=== PATIENT | male | born 1985 | race Caucasian/White ===

== ENCOUNTER 2020-08-18 16:04 | Inpatient (IN) | payer MEDICAID ==
[~2020-08-18] VITALS: Ht 180.3 cm; Wt 75.0 kg
[2020-08-18] MEDS ORDERED: CefTRIAXone 2gm/D5W 50ml BAG 50 ML IV ONE (16:25)
[2020-08-18] MEDS ORDERED: vancomycin/NS 1 GM ADD-VANTAGE 250 ML IV ONE (16:25)
[2020-08-18] MEDS ORDERED: TETanus/Pertussis (Acell)/Diphther VAC/PF (Tdap-Adult) 0.5ml syringe IMVAC ONE (16:40)
[2020-08-18 17:19] VITALS: BP 119/76
[2020-08-18 17:28] LABS: BASOPHILS % (AUTO) 0.4 % (0-1); EOSINOPHILS # (AUTO) 0.3 X10'3 (0-0.9); EOSINOPHILS % (AUTO) 2.8 % (0-6); HEMATOCRIT 38.9 % (42.0-52.0); LYMPHOCYTES % (AUTO) 8.2 % (21-51); MEAN CORPUSCULAR HEMOGLOBIN 30.8 PG (27.0-31.0); MEAN CORPUSCULAR HGB CONC 33.5 g/dL (33.0-36.5); MEAN CORPUSCULAR VOLUME 92.1 FL (78-98); MEAN PLATELET VOLUME 7.4 FL (7.4-10.4); MONOCYTES % (AUTO) 8.4 % (2-12); NEUTROPHILS # (AUTO) 9.5 X10'3 (1.8-7.7); NEUTROPHILS % (AUTO) 80.2 % (42-75); PLATELET COUNT 236 X10'3 (140-440); RED BLOOD COUNT 4.23 X10'6 (4.70-6.10); RED CELL DISTRIBUTION WIDTH 13.3 % (11.5-14.5); WHITE BLOOD COUNT 11.9 X10'3 (4.5-11.0)
[2020-08-18 17:42] LABS: ALANINE AMINOTRANSFERASE 41 U/L (12-78); ALBUMIN 3.6 G/DL (3.4-5.0); ALBUMIN/GLOBULIN RATIO 1.1 (1.1-1.5); ALKALINE PHOSPHATASE 76 IU/L (46-116); ANION GAP 6 (8-16); ASPARTATE AMINO TRANSFERASE 20 U/L (10-37); BILIRUBIN,TOTAL 0.3 MG/DL (0.1-1.0); BLOOD UREA NITROGEN 22 MG/DL (7-18); BUN/CREATININE RATIO 23.9 (5.4-32.0); CALCIUM 8.7 MG/DL (8.5-10.1); CHLORIDE 108 MMOL/L (99-107); CREATININE 0.92 MG/DL (0.60-1.10); GLUCOSE 99 MG/DL (70-104); POTASSIUM 3.8 MMOL/L (3.5-5.1); SODIUM 143 MMOL/L (135-145); TOTAL CARBON DIOXIDE 28.7 MMOL/L (24-32); eGFR > 90 ML/MIN
[2020-08-18] MEDS ORDERED: ondansetron/PF 4mg/2ml inj IV ONE (17:45)
[2020-08-18] MEDS ORDERED: morphine 4 MG/ML inj SYRINge IV ONE (17:45)
[2020-08-18] MEDS ORDERED: morphine 2 MG/ML inj. syringe IV PRN ×2 (17:55)
[2020-08-18] MEDS ORDERED: acetaminophen 325mg tablet PO PRN (17:55)
[2020-08-18] MEDS ORDERED: mag hydrox/Alum hydrox/simeth 30ml oral suspension PO PRN (17:55)
[2020-08-18] MEDS ORDERED: magnesium hydroxide 30ml (MOM) UD suspension PO PRN (17:55)
[2020-08-18] MEDS ORDERED: ondansetron/PF 4mg/2ml inj IV PRN (17:55)
[2020-08-18] MEDS ORDERED: normal saline 1000ml 1,000 ML IV SCH (17:55)
[2020-08-18] MEDS ORDERED: HYDROcodone/acetaminophen 5mg/325mg tablet PO PRN (17:55)
[2020-08-18] MEDS ORDERED: NO HOME MEDS (17:57)
--- NOTE | 2020-08-18 19:07 | NUR ---
I have received report from Giovana ED RN and had the opportunity to ask questions and assume patient care.
--- NOTE | 2020-08-18 19:45 | NUR ---
Pt arrives on unit in wheelchair at 1915, assisted by ED RN. Pt ambulated to room with IV tubing attached to 20g left AC PIV. Pt immediately requested me to take off IV tubing, stating, Can you get take this is off? I disconnected patient from IV tubing, telling him that I will need to reconnect him back to the tubing once he is done with the restroom. Pt comes out of the restroom and sit on the edge of bed and floor aide takes his vital signs. After performing vital sign and while I was performing my physical assessing, pt became very adamant, stating, "Can you take this out of me? I informed the patient that he will need the PIV in place as the doctor has ordered fluid to be administered. Pt became very agitated and states, Okay, give me a moment and rushed out of the room, almost running into another nurse. Pt exited through the exit entrance between room 351 and 352 at 1925. Addendum: 08/18/20 at 2311 by Rafaela Abel RN VS 97.4 F, 101 HR 19 RR, 100% RA, 160/82 BP, 3/10 Pain.
--- NOTE | 2020-08-18 19:46 | NUR ---
, Dr. Tovar, and nursing forest fire specialist supervisor was all informed.
[2020-08-18] MEDS ORDERED: heparin, porcine 5000 units/ml vial SQ SCH (20:00)
--- NOTE | 2020-08-18 20:00 | NUR ---
Per security, pt has left the building through docking ramp.
--- NOTE | 2020-08-18 20:30 | NUR ---
[facility] informed.
[2020-08-19] MEDS ORDERED: VANCOmycin 1250MG/NS 250ml Bag 250 ML IV SCH (05:30)
[2020-08-19] MEDS ORDERED: CefTRIAXone 2gm/D5W 50ml BAG 50 ML IV SCH (08:00)
== END 2020-08-18 19:25 | disposition left against medical advice (07) | DRG 383 ==
LOC: ER 16:05 → ED HOLD 17:55 → SUR 3N 19:15
PROVIDERS: ADMIT Family Medicine; ATTEND Family Medicine
DX: L03.113 Cellulitis of right upper limb (principal); F17.210 Nicotine dependence, cigarettes, uncomplicated; Z89.019 Acquired absence of unspecified thumb; Z53.29 Procedure and treatment not carried out because of patient's decision for other reasons
CPT/HCPCS: 36415; 73130; 80053; 83605; 84145; 85025; 85651; 87040; 87070; 90471; 90715; 96365; 96368; 96375; 99285; G0378; J0696; J2270; J2405; J3370; J7030

== ENCOUNTER 2020-08-19 11:31 | Inpatient (IN) | payer MEDICAID ==
[~2020-08-19] VITALS: Ht 180.3 cm; Wt 63.0 kg
[~2020-08-19 11:31] MED LIST: NO HOME MEDS
[2020-08-19] MEDS ORDERED: CefTRIAXone 2gm/D5W 50ml BAG 50 ML IV ONE (12:50)
[2020-08-19] MEDS ORDERED: vancomycin/NS 1 GM ADD-VANTAGE 250 ML IV ONE (12:50)
[2020-08-19] MEDS ORDERED: normal saline 1000ML IV soln IV ONE (12:50)
[2020-08-19 13:04] LABS: BASOPHILS # (AUTO) 0.1 X10'3 (0-0.2); BASOPHILS % (AUTO) 0.5 % (0-1); EOSINOPHILS # (AUTO) 0.4 X10'3 (0-0.9); HEMATOCRIT 39.1 % (42.0-52.0); HEMOGLOBIN 13.1 g/dl (14.0-17.9); LYMPHOCYTES # (AUTO) 1.1 X10'3 (1.1-4.8); LYMPHOCYTES % (AUTO) 8.8 % (21-51); MEAN CORPUSCULAR HEMOGLOBIN 30.8 PG (27.0-31.0); MEAN CORPUSCULAR HGB CONC 33.4 g/dL (33.0-36.5); MEAN CORPUSCULAR VOLUME 92.2 FL (78-98); MEAN PLATELET VOLUME 7.1 FL (7.4-10.4); MONOCYTES # (AUTO) 1.1 X10'3 (0-0.9); MONOCYTES % (AUTO) 8.6 % (2-12); NEUTROPHILS # (AUTO) 9.6 X10'3 (1.8-7.7); NEUTROPHILS % (AUTO) 79.1 % (42-75); PLATELET COUNT 232 X10'3 (140-440); RED BLOOD COUNT 4.24 X10'6 (4.70-6.10); RED CELL DISTRIBUTION WIDTH 13.2 % (11.5-14.5); WHITE BLOOD COUNT 12.2 X10'3 (4.5-11.0)
[2020-08-19] MEDS ORDERED: ondansetron 4mg rapidly disintigrating tab PO ONE (13:15)
[2020-08-19] MEDS ORDERED: HYDROcodone/acetaminophen 5mg/325mg tablet PO ONE ×2 (13:15→13:55)
[2020-08-19 13:26] LABS: ALANINE AMINOTRANSFERASE 38 U/L (12-78); ALBUMIN 3.3 G/DL (3.4-5.0); ALBUMIN/GLOBULIN RATIO 0.9 (1.1-1.5); ALKALINE PHOSPHATASE 76 IU/L (46-116); ANION GAP 6 (8-16); ASPARTATE AMINO TRANSFERASE 19 U/L (10-37); BILIRUBIN,TOTAL 0.3 MG/DL (0.1-1.0); BLOOD UREA NITROGEN 22 MG/DL (7-18); CALCIUM 9.9 MG/DL (8.5-10.1); CHLORIDE 108 MMOL/L (99-107); CREATININE 0.88 MG/DL (0.60-1.10); GLUCOSE 99 MG/DL (70-104); POTASSIUM 4.2 MMOL/L (3.5-5.1); SODIUM 144 MMOL/L (135-145); TOTAL CARBON DIOXIDE 29.7 MMOL/L (24-32); TOTAL PROTEIN 6.9 G/DL (6.4-8.2); eGFR > 90 ML/MIN
[2020-08-19] MEDS ORDERED: ibuprofen tablet 400 MG TABLET PO ONE (13:55)
[2020-08-19] MEDS ORDERED: morphine 4 MG/ML inj SYRINge IV ONE (14:10)
[2020-08-19] MEDS ORDERED: ondansetron/PF 4mg/2ml inj IV ONE (14:10)
[2020-08-19] MEDS ORDERED: HYDROcodone/acetaminophen 5mg/325mg tablet PO PRN (15:20)
[2020-08-19] MEDS ORDERED: ondansetron/PF 4mg/2ml inj IV PRN (15:20)
[2020-08-19] MEDS ORDERED: acetaminophen 325mg tablet PO PRN ×2 (15:20)
[2020-08-19] MEDS ORDERED: magnesium hydroxide 30ml (MOM) UD suspension PO PRN (15:20)
[2020-08-19] MEDS ORDERED: mag hydrox/Alum hydrox/simeth 30ml oral suspension PO PRN (15:20)
[2020-08-19] MEDS ORDERED: morphine 2 MG/ML inj. syringe IV PRN (15:20)
--- NOTE | 2020-08-19 16:22 | NUR ---
CALLED ER NURSE BUSY, SHE WILL CALL BACK.
[2020-08-19 16:52] VITALS: BP 144/88
[2020-08-19 18:00] VITALS: BP 109/66
--- NOTE | 2020-08-19 18:00 | NUR ---
Patient in room PIA 354. I have received report from CHRISTA ZAMUDIO and had the opportunity to ask questions and assume patient care.
[2020-08-19] MEDS: morphine 2 MG/ML inj. syringe IV PRN (21:32)
[2020-08-20] VITALS: BP 116/72
[2020-08-20] MEDS: vancomycin/NS 1 GM ADD-VANTAGE 250 ML IV SCH ×2 (02:41→14:34)
[2020-08-20] MEDS: HYDROcodone/acetaminophen 10/325mg tab PO PRN ×3 (02:42→20:50)
[2020-08-20] MEDS: morphine 2 MG/ML inj. syringe IV PRN ×5 (03:40→22:55)
--- NOTE | 2020-08-20 06:31 | NUR ---
Patient in room PIA 354. I have received report from LIZZ Dennison and had the opportunity to ask questions and assume patient care.
[2020-08-20 08:00] VITALS: BP 95/53
[2020-08-20 08:18] LABS: BASOPHILS % (AUTO) 0.3 % (0-1); EOSINOPHILS # (AUTO) 0.4 X10'3 (0-0.9); EOSINOPHILS % (AUTO) 3.1 % (0-6); HEMATOCRIT 36.6 % (42.0-52.0); HEMOGLOBIN 12.3 g/dl (14.0-17.9); LYMPHOCYTES # (AUTO) 1.1 X10'3 (1.1-4.8); LYMPHOCYTES % (AUTO) 9.3 % (21-51); MEAN CORPUSCULAR HEMOGLOBIN 31.2 PG (27.0-31.0); MEAN CORPUSCULAR HGB CONC 33.6 g/dL (33.0-36.5); MEAN CORPUSCULAR VOLUME 92.8 FL (78-98); MEAN PLATELET VOLUME 7.3 FL (7.4-10.4); MONOCYTES % (AUTO) 8.3 % (2-12); NEUTROPHILS # (AUTO) 9.5 X10'3 (1.8-7.7); PLATELET COUNT 223 X10'3 (140-440); RED BLOOD COUNT 3.94 X10'6 (4.70-6.10)
[2020-08-20 08:26] LABS: ALBUMIN 2.8 G/DL (3.4-5.0); ANION GAP 2 (8-16); BLOOD UREA NITROGEN 17 MG/DL (7-18); BUN/CREATININE RATIO 20.7 (5.4-32.0); CHLORIDE 106 MMOL/L (99-107); CREATININE 0.82 MG/DL (0.60-1.10); GLUCOSE 100 MG/DL (70-104); SODIUM 140 MMOL/L (135-145); TOTAL CARBON DIOXIDE 31.7 MMOL/L (24-32); eGFR > 90 ML/MIN
[2020-08-20 11:23] LABS: CLARITY,URINE CLEAR (Clear); COLOR,URINE YELLOW (Yellow); GLUCOSE, URINE NEGATIVE (Neg); KETONES,URINE NEGATIVE (Neg); LEUKOCYTE ESTERASE ,URINE TRACE (Neg); NITRITES, URINE NEGATIVE (Neg); OCCULT BLOOD,URINE NEGATIVE (Neg); PROTEIN,URINE NEGATIVE (Neg); UROBILINOGEN,URINE 0.2 E.U/dL (0.2-1.0)
[2020-08-20 11:25] LABS: UA COLLECTION TYPE CLN CATCH MIDSTREAM
[2020-08-20 11:39] LABS: MUCUS STRANDS FEW /LPF (Neg)
[2020-08-20 11:41] LABS: HYALINE CASTS 0-3 /LPF (NEGATIVE)
[2020-08-20 11:43] LABS: BACTERIA,URINE NONE SEEN /HPF (Neg); RBC,URINE 0-2 /HPF (0-2); SQUAMOUS EPITHELIAL CELL,UR NONE SEEN /LPF (FEW); WBC,URINE 0-4 /HPF (0-4)
[2020-08-20 12:25] VITALS: BP 128/75
[2020-08-20 18:00] VITALS: BP 137/72
--- NOTE | 2020-08-20 18:08 | NUR ---
Problems reprioritized. Patient report given, questions answered & plan of care reviewed with LIZZ Dennison.
[2020-08-20] MEDS: lactobacillus rhamnosus 10,000 MMU CELLS/CAPSULE PO SCH (19:05)
[2020-08-21] VITALS: BP 125/79
[2020-08-21] MEDS ORDERED: VANCOMYCIN LEVEL IV ONE (02:00)
[2020-08-21] MEDS: morphine 2 MG/ML inj. syringe IV PRN ×2 (03:16→11:23)
[2020-08-21] MEDS: vancomycin/NS 1 GM ADD-VANTAGE 250 ML IV SCH ×3 (03:16→20:41)
[2020-08-21 03:24] LABS: BASOPHILS % (AUTO) 0.4 % (0-1); EOSINOPHILS # (AUTO) 0.3 X10'3 (0-0.9); EOSINOPHILS % (AUTO) 2.8 % (0-6); HEMATOCRIT 38.4 % (42.0-52.0); HEMOGLOBIN 12.7 g/dl (14.0-17.9); LYMPHOCYTES # (AUTO) 1.1 X10'3 (1.1-4.8); LYMPHOCYTES % (AUTO) 9.8 % (21-51); MEAN CORPUSCULAR HEMOGLOBIN 30.1 PG (27.0-31.0); MEAN CORPUSCULAR VOLUME 91.2 FL (78-98); MEAN PLATELET VOLUME 7.3 FL (7.4-10.4); MONOCYTES % (AUTO) 8.5 % (2-12); NEUTROPHILS % (AUTO) 78.5 % (42-75); PLATELET COUNT 240 X10'3 (140-440); RED BLOOD COUNT 4.21 X10'6 (4.70-6.10); WHITE BLOOD COUNT 11.4 X10'3 (4.5-11.0)
[2020-08-21 03:25] LABS: ALBUMIN 2.8 G/DL (3.4-5.0); ANION GAP 6 (8-16); BLOOD UREA NITROGEN 12 MG/DL (7-18); BUN/CREATININE RATIO 15.6 (5.4-32.0); CALCIUM 8.7 MG/DL (8.5-10.1); CHLORIDE 100 MMOL/L (99-107); CREATININE 0.77 MG/DL (0.60-1.10); GLUCOSE 91 MG/DL (70-104); POTASSIUM 3.9 MMOL/L (3.5-5.1); SODIUM 137 MMOL/L (135-145); TOTAL CARBON DIOXIDE 30.9 MMOL/L (24-32); VANCOMYCIN,TROUGH 4.3 UG/ML (6.0-14.0); eGFR > 90 ML/MIN
[2020-08-21] MEDS: HYDROcodone/acetaminophen 10/325mg tab PO PRN ×3 (04:58→20:42)
[2020-08-21 07:32] VITALS: BP 102/54
[2020-08-21 11:00] VITALS: BP 120/63
[2020-08-21] MEDS: lactobacillus rhamnosus 10,000 MMU CELLS/CAPSULE PO SCH ×2 (11:23→20:41)
--- NOTE | 2020-08-21 18:31 | NUR ---
Patient in room PIA 354. I have received report from BLANCO ZAMUDIO and had the opportunity to ask questions and assume patient care. Addendum: 08/21/20 at 1831 by Bridget Thomas RN Amended: Links added.
--- NOTE | 2020-08-21 18:38 | NUR ---
Problems reprioritized. Patient report given, questions answered & plan of care reviewed with RICA ZAMUDIO.
[2020-08-21 19:00] VITALS: BP_SYST 101; BP_SYST 111; BP_DIAS 65
--- NOTE | 2020-08-21 20:55 | NUR ---
medicated with po norco hand pain 5/10. sandwich and juice given per request. iv abx infusing.
--- NOTE | 2020-08-21 22:10 | NUR ---
resting without changes at this time.
[2020-08-21 23:45] VITALS: BP 111/63
--- NOTE | 2020-08-22 | NUR ---
awoke vitals done and snack of milk and mike crackers given at this time.
[2020-08-22] MEDS: HYDROcodone/acetaminophen 10/325mg tab PO PRN ×2 (01:58→06:30)
--- NOTE | 2020-08-22 02:01 | NUR ---
awoke used foul language said he was in pain and almost pulled iv out accidently. iv retaped and medicated for pain with po norco for this.
[2020-08-22] MEDS: vancomycin/NS 1 GM ADD-VANTAGE 250 ML IV SCH ×2 (03:57→11:25)
--- NOTE | 2020-08-22 04:32 | NUR ---
dressing to right hand removed for saturation and cleaned and redone by Nina to right hand. iv abx infusing.
[2020-08-22 05:49] LABS: BASOPHILS % (AUTO) 0.6 % (0-1); EOSINOPHILS # (AUTO) 0.4 X10'3 (0-0.9); EOSINOPHILS % (AUTO) 4.8 % (0-6); HEMATOCRIT 39.2 % (42.0-52.0); HEMOGLOBIN 13.4 g/dl (14.0-17.9); LYMPHOCYTES # (AUTO) 1.4 X10'3 (1.1-4.8); LYMPHOCYTES % (AUTO) 18.3 % (21-51); MEAN CORPUSCULAR HGB CONC 34.2 g/dL (33.0-36.5); MEAN CORPUSCULAR VOLUME 90.6 FL (78-98); MEAN PLATELET VOLUME 7.3 FL (7.4-10.4); MONOCYTES # (AUTO) 0.8 X10'3 (0-0.9); MONOCYTES % (AUTO) 10.3 % (2-12); NEUTROPHILS # (AUTO) 4.9 X10'3 (1.8-7.7); PLATELET COUNT 278 X10'3 (140-440); RED BLOOD COUNT 4.33 X10'6 (4.70-6.10); WHITE BLOOD COUNT 7.5 X10'3 (4.5-11.0)
--- NOTE | 2020-08-22 06:34 | NUR ---
medicated for c/o right hand pain.
--- NOTE | 2020-08-22 06:42 | NUR ---
Problems reprioritized. Patient report given, questions answered & plan of care reviewed with kerry figueredo. Addendum: 08/22/20 at 0643 by Bridget Thomas RN Amended: Links added.
--- NOTE | 2020-08-22 06:49 | NUR ---
Problems reprioritized. Patient report given, questions answered & plan of care reviewed with DAISY ZAMUDIO. Addendum: 08/22/20 at 0649 by Bridget Thomas RN Amended: Links added.
[2020-08-22 06:50] LABS: ALBUMIN 2.9 G/DL (3.4-5.0); ANION GAP 4 (8-16); BLOOD UREA NITROGEN 17 MG/DL (7-18); BUN/CREATININE RATIO 19.8 (5.4-32.0); CALCIUM 8.8 MG/DL (8.5-10.1); CHLORIDE 103 MMOL/L (99-107); CREATININE 0.86 MG/DL (0.60-1.10); GLUCOSE 88 MG/DL (70-104); POTASSIUM 4.6 MMOL/L (3.5-5.1); SODIUM 139 MMOL/L (135-145); TOTAL CARBON DIOXIDE 31.9 MMOL/L (24-32); eGFR > 90 ML/MIN
--- NOTE | 2020-08-22 06:55 | NUR ---
Patient in room PIA 354. I have received report from Bridget ZAMUDIO and had the opportunity to ask questions and assume patient care.
[2020-08-22 07:00] VITALS: BP 134/69
[2020-08-22] MEDS: lactobacillus rhamnosus 10,000 MMU CELLS/CAPSULE PO SCH (10:03)
[2020-08-22] MEDS ORDERED: VANCOMYCIN LEVEL IV ONE (10:30)
[2020-08-22] MEDS ORDERED: OMEP20CA15 PO (10:36)
[2020-08-22] MEDS ORDERED: DOXY-243 PO (10:36)
[2020-08-22] MEDS ORDERED: ACET-1008 PO (10:36)
[2020-08-22] MEDS ORDERED: IBUP-1985 PO (10:37)
--- NOTE | 2020-08-22 10:41 | NUR ---
Dr wants patient to receive IV Vanco as ordered prior to D/C.
[2020-08-22 12:00] VITALS: BP 131/81
--- NOTE | 2020-08-22 14:00 | NUR ---
Pt stable and appropriate for D/C. PIV d/c'd, canula intact. Reviewed with patient all d/c instructions and meds, wound care instructions and supplies given with pt given opportunity to ask questions, answers provided and pt verbalizing understanding. Pt to phone PCP with any questions/concerns, s/sx of complications/infection or return to nearest ED. Pt escorted to front lobby via w/c, escorted by hospital staff with all personal belongings. Driven home in private vehicle driven by girlfriend.
== END 2020-08-22 13:55 | disposition home or self-care (01) | DRG 383 ==
LOC: ER 11:32 → ED HOLD 15:16 → SUR 3N 16:43
PROVIDERS: ADMIT Internal Medicine; ATTEND Internal Medicine
DX: L03.113 Cellulitis of right upper limb (principal); F12.90 Cannabis use, unspecified, uncomplicated; L02.511 Cutaneous abscess of right hand; M65.9 Synovitis and tenosynovitis, unspecified
CPT/HCPCS: 36415; 73130; 80048; 80053; 80202; 81001; 83605; 84145; 85025; 87040; 87081; 87088; 99285; G0378; J0696; J2270; J2405; J3370; J7030